=== PATIENT | male | born 1980 | race Caucasian/White ===

== ENCOUNTER 2021-09-24 16:21 | Emergency (ER) | payer OTHER ==
[~2021-09-24] VITALS: Ht 175.3 cm; Wt 77.1 kg
[2021-09-24] MEDS ORDERED: LIPITOR20 MG PO (16:50)
[2021-09-24] MEDS ORDERED: ESCITALOPRAM OX10 MG PO (16:50)
== END 2021-09-24 20:10 | disposition home or self-care (01) ==
LOC: ED 16:21
DX: T40.711A Poisoning by cannabis, accidental (unintentional), initial encounter (principal); Z88.8 Allergy status to other drugs, medicaments and biological substances
CPT/HCPCS: 96374; 99283-25; J2405; J7030